=== PATIENT | female | born 1930 | race Caucasian/White ===

== ENCOUNTER 2016-06-16 11:59 | Outpatient (CLI) | payer OTHER, MEDICARE ==
--- NOTE | 2016-06-16 14:50 | DIAGNOSTIC IMAGING REPORT ---
PROCEDURE: US THYROID NEEDLE BIOPSY INDICATION: LEFT THYROID NODULE COMPARISON: None. TECHNIQUE: Informed consent was obtained and the patient was advised of the usual risks and complications including infection, bleeding and allergy. Supine position with the neck extended. Following sterile preparation and 1% lidocaine local anesthetic, ultrasound guidance was utilized to place a 16-gauge coaxial needle in the lower central neck and directed into a 3 cm left thyroid nodule. Subsequently, six core biopsy samples were obtained with a 22-gauge biopsy instrument and placed in formalin. Specimens were transferred to the laboratory. The patient tolerated the procedure well and was discharged home in satisfactory condition with instructions to call for any untoward symptoms (increasing pain/swelling). IMPRESSION: 1. Successful ultrasound-guided biopsy of left thyroid mass/nodule.
== END 2016-06-16 23:00 ==
LOC: US SRH 11:59
PROC: 0GBG3ZX Excision of Left Thyroid Gland Lobe, Percutaneous Approach, Diagnostic (ICD-10-PCS; principal; 2016-06-16)
PROC: BG44ZZZ Ultrasonography of Thyroid Gland (ICD-10-PCS; 2016-06-16)
DX: E04.1 Nontoxic single thyroid nodule (principal)
CPT/HCPCS: 82445